=== PATIENT | male | born 1995 | race Caucasian/White ===

== ENCOUNTER 2016-12-04 18:42 | Emergency (ER) | payer SELFPAY | END 2016-12-04 21:42 | disposition home or self-care (01) | LOC: D.ER 18:42 | DX: M54.5 Low back pain (principal); M54.10 Radiculopathy, site unspecified; I10 Essential (primary) hypertension ==

== ENCOUNTER 2017-06-18 19:01 | Emergency (ER) | payer SELFPAY | END 2017-06-18 21:21 | disposition home or self-care (01) | LOC: D.ER 19:01 | DX: S60.221A Contusion of right hand, initial encounter (principal); W22.8XXA Striking against or struck by other objects, initial encounter; F41.9 Anxiety disorder, unspecified; I10 Essential (primary) hypertension ==

== ENCOUNTER 2017-07-10 00:30 | Emergency (ER) | payer OTHER | END 2017-07-10 01:55 | disposition home or self-care (01) | LOC: D.ER 00:30 | DX: J02.9 Acute pharyngitis, unspecified (principal); I10 Essential (primary) hypertension; R50.9 Fever, unspecified ==

== ENCOUNTER 2017-07-10 21:19 | Emergency (ER) | payer OTHER | END 2017-07-10 22:59 | disposition home or self-care (01) | LOC: D.ER 21:19 | DX: S80.02XA Contusion of left knee, initial encounter (principal); S60.221A Contusion of right hand, initial encounter; V49.9XXA Car occupant (driver) (passenger) injured in unspecified traffic accident, initial encounter; Y93.89 Activity, other specified; Y92.410 Unspecified street and highway as the place of occurrence of the external cause; I10 Essential (primary) hypertension; M54.2 Cervicalgia ==

== ENCOUNTER 2017-07-11 10:16 | Emergency (ER) | payer OTHER | END 2017-07-11 11:04 | disposition home or self-care (01) | LOC: D.ER 10:16 | DX: S89.92XA Unspecified injury of left lower leg, initial encounter (principal); X58.XXXA Exposure to other specified factors, initial encounter; Y93.89 Activity, other specified; Y92.89 Other specified places as the place of occurrence of the external cause; M79.662 Pain in left lower leg; I10 Essential (primary) hypertension ==

== ENCOUNTER 2017-07-17 06:26 | Emergency (ER) | payer OTHER | END 2017-07-17 07:30 | disposition home or self-care (01) | LOC: D.ER 06:26 | DX: S83.92XA Sprain of unspecified site of left knee, initial encounter (principal); V89.2XXA Person injured in unspecified motor-vehicle accident, traffic, initial encounter; Y93.89 Activity, other specified; Y92.89 Other specified places as the place of occurrence of the external cause; I10 Essential (primary) hypertension ==

== ENCOUNTER 2017-08-19 11:05 | Emergency (ER) | payer OTHER | END 2017-08-19 12:11 | disposition home or self-care (01) | LOC: D.ER 11:05 | DX: S86.912A Strain of unspecified muscle(s) and tendon(s) at lower leg level, left leg, initial encounter (principal); V89.2XXA Person injured in unspecified motor-vehicle accident, traffic, initial encounter; Y93.89 Activity, other specified; Y92.89 Other specified places as the place of occurrence of the external cause ==

== ENCOUNTER 2017-10-29 06:15 | Day surgery (SDC) | payer OTHER ==
[2017-10-27 16:17] LABS: HEMATOCRIT 48.7 % (42.0-54.0); MCH 32.6 pg (26.0-34.0); MCHC 34.9 g/dL (31.0-37.0); MCV 93.3 fL (80.0-100.0); MEAN PLATELET VOLUME 11.6 fL (7.4-10.4); RBC 5.22 10x6/uL (4.20-6.10); RDW 11.6 % (11.5-14.5); WBC 8.6 10x3/uL (4.8-10.8)
[~2017-10-29] VITALS: Ht 175.3 cm; Wt 95.3 kg
[~2017-10-29 06:15] MED LIST: BENTYL10 MG PO; DEPAKENE250 MG PO; MIRALAX17 GM PO; PEPCID AC20 MG PO; PROZAC10 MG PO; SEROQUEL50 MG PO
[2017-10-29 07:04] VITALS: BP 144/87; Ht 175.3 cm; Wt 95.3 kg
[2017-10-29] MEDS ORDERED: HYDROCODONE-APA1 TAB PO (08:51)
--- NOTE | 2017-10-29 10:44 | NUR ---
WAITING ON RIDE
--- NOTE | 2017-10-29 10:44 | NUR ---
IV DC WITH CATHER TIP INTACT
--- NOTE | 2017-11-16 17:58 | OP ---
PATIENT NAME: ROSANGELA LAGUNAS MEDICAL RECORD: [id number] :89 LOCATION:D.OPS ADMISSION DATE: SURGEON: HALIE BEE MD DATE OF OPERATION: 10/29/2017 PREOPERATIVE DIAGNOSIS: Medial meniscus tear of the left knee. POSTOPERATIVE DIAGNOSIS: Medial meniscus tear of the left knee. PROCEDURE: Arthroscopic partial medial meniscectomy. SURGEON: Halie Bee MD ANESTHESIA: General. INTRAOPERATIVE COMPLICATIONS: None. SUMMARY OF PATHOLOGIC FINDINGS: The patient had a complex tear of the posterior horn of medial meniscus consistent with the patient's MRI. OPERATIVE SUMMARY IN DETAIL: After obtaining the appropriate preoperative orthopedic surgery consent as well as anesthetic consultation, evaluation and clearance, the patient was brought to the operating room and placed on the operating table in supine position. After general laryngeal mask was administered, tourniquet was placed about the proximal aspect of the left lower extremity. Left lower extremity was then prepped and draped in a routine sterile fashion. The knee was elevated, exsanguinated and tourniquet was inflated to 350 mmHg. Arthroscopy of the left knee was approached with inferolateral portal followed by superior medial portal and inferomedial portal. Diagnostic arthroscopy did reveal the above findings. Combination of arthroscopic meniscotomes as well as an arthroscopic resector were utilized to debride the medial meniscus back to stable meniscal elements. Having completed this, the knee was insufflated with 30 cc of 0.25% Marcaine with epinephrine and 40 mg of Depo-Medrol. Arthroscopy portals were closed in routine interrupted fashion using 4-0 Prolene. Sterile dressings were applied. The patient was awakened, taken to recovery in stable condition. All final needle and sponge counts were correct. TRANSINT:[id number] Voice Confirmation ID: [id number] DOCUMENT ID: [id number] HALIE BEE MD at 1758 CC: [id number] DICTATION DATE: 11/16/17 1526 [employer]DRA[employer]IC ROCK[employer] OPERATOR: 11/16/17 1616 [facility] 10/29/17 [id number] [place] [address]
== END 2017-10-29 11:14 | disposition home or self-care (01) ==
LOC: D.OPS 06:15 → D.PAN 09:00 → D.OPS 09:00
PROVIDERS: Anesthesiology
DX: S83.242A Other tear of medial meniscus, current injury, left knee, initial encounter (principal); I10 Essential (primary) hypertension; K21.9 Gastro-esophageal reflux disease without esophagitis; G47.30 Sleep apnea, unspecified; Z01.812 Encounter for preprocedural laboratory examination

== ENCOUNTER 2018-03-03 17:47 | Emergency (ER) | payer OTHER ==
[2017-10-29 07:04] VITALS: BMI 31.0
[~2018-03-03 17:47] MED LIST changes: +HYDROCODONE-APA1 TAB PO
== END 2018-03-03 21:00 | disposition home or self-care (01) ==
LOC: D.ER 17:47
DX: S39.012A Strain of muscle, fascia and tendon of lower back, initial encounter (principal); V43.62XA Car passenger injured in collision with other type car in traffic accident, initial encounter; Y93.89 Activity, other specified; Y92.410 Unspecified street and highway as the place of occurrence of the external cause

== ENCOUNTER 2018-07-10 00:27 | Emergency (ER) | payer OTHER ==
[~2018-07-10] VITALS: Ht 175.3 cm; Wt 95.5 kg
[2018-07-10 00:37] VITALS: Ht 175.3 cm; Wt 95.5 kg
[2018-07-10] MEDS ORDERED: LATUDA40 MG PO (00:38)
[2018-07-10] MEDS ORDERED: DEPAKENE250 MG PO (00:39)
[2018-07-10] MEDS ORDERED: HYDROCODONE-APA1 TAB PO (03:15)
[2018-07-10] MEDS ORDERED: CYCLOBENZAPRINE10 MG PO (03:16)
[2018-07-10 03:51] VITALS: BP 130/78
== END 2018-07-10 03:52 | disposition home or self-care (01) ==
LOC: D.ER 00:27
DX: M54.5 Low back pain (principal); I10 Essential (primary) hypertension; F17.200 Nicotine dependence, unspecified, uncomplicated

== ENCOUNTER 2019-01-11 19:00 | Emergency (ER) | payer OTHER ==
[~2019-01-11] VITALS: Ht 175.3 cm; Wt 87.7 kg
[~2019-01-11 19:00] MED LIST changes: +CYCLOBENZAPRINE10 MG PO; +LATUDA40 MG PO
[2019-01-11 19:28] VITALS: Ht 175.3 cm; Wt 87.7 kg
[2019-01-11 20:30] LABS: APPEARANCE CLEAR (CLEAR); BILIRUBIN NEGATIVE (NEGATIVE); COLOR YELLOW (YELLOW); GLUCOSE NEGATIVE (NEGATIVE); KETONE NEGATIVE (NEGATIVE); NITRITE NEGATIVE (NEGATIVE); PROTEIN NEGATIVE (NEGATIVE); SPECIFIC GRAVITY 1.015 (1.005-1.020); UROBILINOGEN NORMAL (NORMAL)
[2019-01-12] MEDS ORDERED: TYLENOL W/CODEI1 TAB PO (00:53)
[2019-01-12 01:05] VITALS: BP 132/80
== END 2019-01-12 01:05 | disposition home or self-care (01) ==
LOC: D.ER 19:00
PROVIDERS: Family Medicine
DX: N50.812 Left testicular pain (principal); N50.811 Right testicular pain; R10.9 Unspecified abdominal pain

== ENCOUNTER 2019-04-11 18:38 | Emergency (ER) | payer OTHER ==
[~2019-04-11] VITALS: Ht 175.3 cm; Wt 86.4 kg
[~2019-04-11 18:38] MED LIST changes: +TYLENOL W/CODEI1 TAB PO
[2019-04-11 18:53] VITALS: Ht 175.3 cm; Wt 86.4 kg
[2019-04-11] MEDS ORDERED: ULTRAM50 MG PO (21:44)
[2019-04-11 22:18] VITALS: BP 138/98
== END 2019-04-11 22:18 | disposition home or self-care (01) ==
LOC: D.ER 18:38
DX: M77.11 Lateral epicondylitis, right elbow (principal)

== ENCOUNTER 2019-12-15 18:25 | Emergency (ER) | payer OTHER ==
[~2019-12-15] VITALS: Ht 175.3 cm; Wt 95.5 kg
[~2019-12-15 18:25] MED LIST changes: +ULTRAM50 MG PO
[2019-12-15 18:44] VITALS: Ht 175.3 cm; Wt 95.5 kg
[2019-12-15] MEDS ORDERED: PREDNISONE20 MG PO (20:31)
[2019-12-15 20:56] VITALS: BP 118/65
== END 2019-12-15 20:56 | disposition home or self-care (01) ==
LOC: D.ER 18:25
DX: S93.402A Sprain of unspecified ligament of left ankle, initial encounter (principal); W11.XXXA Fall on and from ladder, initial encounter; Y93.9 Activity, unspecified; Y92.9 Unspecified place or not applicable; I10 Essential (primary) hypertension; E78.5 Hyperlipidemia, unspecified

== ENCOUNTER 2019-12-24 13:14 | Emergency (ER) | payer OTHER ==
[~2019-12-24 13:14] MED LIST changes: +PREDNISONE20 MG PO
[2019-12-24 13:20] VITALS: Ht 175.3 cm
[2019-12-24] MEDS ORDERED: CYCLOBENZAPRINE10 MG PO (15:54)
[2019-12-24 17:11] VITALS: BP 139/80
== END 2019-12-24 17:12 | disposition home or self-care (01) ==
LOC: D.ER 13:14
DX: M54.5 Low back pain (principal); M62.830 Muscle spasm of back; I10 Essential (primary) hypertension; E78.5 Hyperlipidemia, unspecified

== ENCOUNTER 2020-07-08 19:31 | Emergency (ER) | payer OTHER ==
[~2020-07-08] VITALS: Ht 175.3 cm; Wt 97.8 kg
[2020-07-08 19:49] VITALS: Ht 175.3 cm; Wt 97.8 kg
[2020-07-08] MEDS ORDERED: DEPAKOTE ER500 MG PO (19:53)
[2020-07-08 20:14] LABS: BASOPHILS 0.5 % (0-2); HEMATOCRIT 48.5 % (42.0-54.0); HEMOGLOBIN 16.6 g/dL (13.5-17.5); IMMATURE GRANULOCYTES 1.4 % (0-5); LYMPHOCYTES 40.9 % (15-50); MCH 32.6 pg (26.0-34.0); MCHC 34.2 g/dL (31.0-37.0); MCV 95.3 fL (80.0-100.0); MEAN PLATELET VOLUME 11.6 fL (7.4-10.4); MONOCYTES 8.4 % (2-11); NEUTROPHILS 46.8 % (40-80); PLATELET COUNT 230 10x3/uL (130-400); RBC 5.09 10x6/uL (4.20-6.10); RDW 11.9 % (11.5-14.5); WBC 10.1 10x3/uL (4.8-10.8)
--- NOTE | 2020-07-08 20:31 | NUR ---
DR DUPREE NOTIFIED AND REVIEWED PT's BEHAVIOR AND ASSESSMENT RESULTS. PT IS A LOW RISK PER DR DUPREE. DR DUPREE STATED TO GIVE RESOURCES TO PT AT TIME OF DISCHARGE. NO FURTHER ORDERS AT THIS TIME. RESOURCES REVIEWED WITH PT AND HE VERBALIZED UNDERSTANDING.
[2020-07-08 20:36] LABS: CALC OSMOLALITY 282 mosm/kg (275-300); CALCIUM 8.8 mg/dL (8.5-10.1); CARBON DIOXIDE 26.5 mmol/L (21.0-32.0); CHLORIDE - SERUM 104 mmol/L (98-107); CREATININE - SERUM 0.9 mg/dL (0.6-1.3); GLUCOSE 96 mg/dL (74-106); POTASSIUM - SERUM 3.7 mmol/L (3.5-5.1); SODIUM 141 mmol/L (136-145); UREA NITROGEN 18 mg/dL (7-18); eGFR NON AFRICAN AMERICAN > 90 mL/min (90-120)
[2020-07-08 20:37] LABS: UDS - AMPHET NEGATIVE QUAL (NEGATIVE); UDS - BARB NEGATIVE QUAL (NEGATIVE); UDS - BENZO NEGATIVE QUAL (NEGATIVE); UDS - COCAINE NEGATIVE QUAL (NEGATIVE); UDS - OPIATE NEGATIVE QUAL (NEGATIVE); UDS - PCP NEGATIVE QUAL (NEGATIVE); UDS - THC NEGATIVE QUAL (NEGATIVE)
[2020-07-08 20:38] LABS: ALKALINE PHOSPHATASE 60 U/L (30-120); ALT (SGPT) 153 U/L (10-68); MAGNESIUM - SERUM 2.4 mg/dL (1.8-2.4); PROTEIN - SERUM 7.6 g/dL (6.4-8.2); VALPROIC ACID (DEPAKOTE) 89.7 ug/mL (50.0-100.0)
[2020-07-08 20:50] LABS: BILIRUBIN NEGATIVE (NEGATIVE); GLUCOSE NEGATIVE (NEGATIVE); KETONE NEGATIVE (NEGATIVE); NITRITE NEGATIVE (NEGATIVE); UROBILINOGEN NORMAL (NORMAL)
[2020-07-08 20:51] LABS: BACTERIA FEW /hpf (NEGATIVE); EPITHELIAL CELLS NSEEN /hpf (0-5); RED CELLS - URINE NONE SEEN /hpf (0-5); WHITE CELLS - URINE 0-5 /hpf (NEGATIVE)
[2020-07-09 02:53] VITALS: BP 122/70
== END 2020-07-09 03:13 ==
LOC: D.ER 19:31
PROVIDERS: Family Medicine
DX: F32.9 Major depressive disorder, single episode, unspecified (principal); R45.851 Suicidal ideations; I10 Essential (primary) hypertension

== ENCOUNTER 2021-05-27 22:24 | Emergency (ER) | payer OTHER ==
[~2021-05-27] VITALS: Ht 177.8 cm; Wt 88.6 kg
[~2021-05-27 22:24] MED LIST changes: +BACLOFEN20 M1 PO; +DEPAKOTE ER500 MG PO; +MEDROL DOSE PACK4 MG PO
[2021-05-27 22:33] VITALS: BP 139/99; Ht 177.8 cm; Wt 88.6 kg
[2021-05-27] MEDS ORDERED: DOXYCYCLINE HY100 M2 PO (23:08)
[2021-05-27] MEDS ORDERED: TYLENOL W/CODEI1 TAB PO (23:18)
== END 2021-05-27 23:40 | disposition home or self-care (01) ==
LOC: D.ER 22:24
DX: N45.1 Epididymitis (principal); I10 Essential (primary) hypertension; E78.5 Hyperlipidemia, unspecified